=== PATIENT | male | born 2000 | race Caucasian/White ===

== ENCOUNTER 2020-07-24 16:00 | Emergency (ER) | payer OTHER, SELFPAY ==
[2020-07-24 16:13] VITALS: BP 136/91; PULSE 77; RESP 18; TEMP 36.3; O2SAT 98; BMI 30.5
--- NOTE | 2020-07-24 16:19 | XR_ITS ---
WS: [id number] Left hand, 3 views, 07/24/2020 Clinical Data: crush injury to hand Comparison: Left hand, 06/29/2016. Findings: There is a comminuted fracture of the proximal phalanx of the left second finger. There may be fat in the subcutaneous tissue adjacent to the fracture. There is soft tissue swelling about the left secon d finger. No other fractures are seen. The joint spaces are normal. XR/XR hand LT min 3V* [id number] Impression: Comminuted fracture of the second proximal phalanx of the left hand.
--- NOTE | 2020-07-24 16:20 | W.ED.EXTPRO ---
HPI - Extremity Problem General: Chief complaint: Extremity Injury, Upper Stated complaint: LEFT HAND INJURY Time Seen by Provider: 07/24/20 16:15 History of Present Illness: HPI Narrative: Patient is a 19-year-old male comes to the ED with left hand injury. Patient says he was at work and obtained a crush injury between heavy machinery equipment and a wall. Injury cause lacerations on second digit of left hand. He rates his pain currently an 8 out of 10. Most of his pain is located at second digit of left hand. Endorses limited range of motion of second digit due to pain. Patient had his last tetanus 2 years ago. Associated symptoms: Deny chest pain, fever(s) or rash Review of Systems Const: Denies: fever(s), chills or fatigue Eyes: Denies: change in vision or eye discomfort ENMT: Denies: throat pain, odynophagia, nasal discharge or nasal congestion Card: Denies: chest pain, palpitations, edema, swelling of feet/ankles, dyspnea on exertion or orthopnea Resp: Denies: dyspnea, productive cough or non-productive cough GI: Denies: abdominal pain, nausea, vomiting, diarrhea, constipation or hematochezia : Denies: flank pain, difficulty urinating, dysuria or hematuria Musc: Reports: extremity pain (Left hand); Denies: neck pain, back pain or extremity swelling Skin/Breast: Denies: rash or new lesions Neuro: Denies: headache(s), numbness in extremities or weakness in extremities Physical Exam Const: COMMON NORMALS: no acute distress, patient oriented x3 and alert GENERAL APPEARANCE: cooperative and comfortable HENMT: COMMON NORMALS: normocephalic HEAD & SCALP: normocephalic MOUTH: Normal oral and palatal mucosa present THROAT: posterior oropharynx normal and uvula midline Neck/C-Spine: COMMON NORMALS: supple GENERAL: Yes normal visual inspection Resp: COMMON NORMALS: normal respiratory effort, No retractions, No use of accessory muscles and clear to auscultation bilaterally AUSCULTATION: clear to auscultation bilaterally Cardio: COMMON NORMALS: regular rate, regular rhythm, S1 normal heart sound present, S2 normal heart sound present, No gallops present (Cardio), No clicks present (Cardio), No murmurs present (Cardio) and Peripheral pulses 2+ throughout RATE: regular rate RHYTHM: regular rhythm HEART SOUNDS: S1 normal heart sound present and S2 normal heart sound present PERIPHERAL PULSES: Peripheral pulses 2+ throughout GI: COMMON NORMALS: Normal to inspection, nondistended, normoactive bowel sounds present, Soft to palpation, non-tender and no masses PALPATION: Yes Soft to palpation : COMMON NORMALS: Yes no CVA tenderness BLADDER/KIDNEY EXAM: Yes no CVA tenderness Back/Pelvis: COMMON NORMALS: no CVA tenderness Extremity: NARRATIVE EXTREMITY EXAM: Left hand?no visible deformity seen. Swelling noted over the second digit MCP area. Patient also has 2 small superficial abrasions with minimal active bleeding. no second digit range of motion due to pain. Neurovascular intact. Neuro: COMMON NORMALS: patient oriented x3 and moves all extremities SENSORIUM/ORIENTATION: Yes alert Skin: NARRATIVE SKIN EXAM: 2 small superficial abrasions on second digit of left hand. Course Vital Signs: Vital signs: Vital Signs Temperature 97.3 F L 07/24/20 16:13 Pulse Rate 77 07/24/20 16:13 Respiratory Rate 18 07/24/20 17:26 Blood Pressure 136/91 07/24/20 16:13 Pulse Oximetry 98 07/24/20 16:13 MDM - Extremity (Nontraumatic) MDM Narrative: Medical decision making narrative: Patient is a 19-year-old male comes to the ED with crush injury to left hand. Patient particular has pain and swelling and limited range of motion second digit of left hand. 2 superficial abrasions noted. X-ray of left hand showed second digit comminuted proximal phalanx fracture. Patients left hand was irrigated and cleaned up and abrasions were bandaged. Patient was put in a splint and given a dose of hydrocodone while here in the ED and sent home with a written prescription for hydrocodone as well. I placed order with case management for patient to be referred to an orthopedic doctor at [facility]. Return to ED precautions given. I told patient to limit activity with left hand and to keep splint on and dry. Return to ED precautions given. Worker's Comp. paperwork was filled out and signed. I told patient that case management will be contacting him in the next several days set up an appoint with orthopedic doctor in [place]. patient understood and agreed with plan. Imaging Data^: Xray Ortho: Attestation: I personally reviewed and interpreted this imaging study as follows: My impression: Left hand x-ray?second digit comminuted proximal phalanx fracture. Discharge Plan Discharge Patient Disposition: Home Clinical Impression: Fracture of proximal phalanx of digit of left hand Qualifiers: Fracture type: open Qualified Code(s): S62.619B - Displaced fracture of proximal phalanx of unspecified finger, initial encounter for open fracture Condition: Stable Prescriptions: New cephalexin 500 mg capsule 500 mg PO Q6H 7 Days Qty: 28 RF: 0 No Action No Known Home Medications RF: 0 Discharge Orders: Discharge ED (Routine); Ordered 07/24/20 Ordered By: Leland Soriano Discharge Diet: Regular Discharge Activity: Limit activity as instructed Patient Instructions: Fractures - Phalanx (Finger), Opioid Safety Activity Restrictions/Additional Instructions: Follow-up with medical provider as directed. This management will be contacting the next several days to set up an appointment with orthopedic doctor at [facility] in [place]. Take medications as prescribed. Return to the ER or your medical provider if condition worsens. Please read and understand discharge instructions. If any questions, please ask. Stand Alone Forms: Work/School Release Coding Level of Care Code ED Spinner Frame for Josi Fwd Exam Comprehensive
[2020-07-24] MEDS: HYDROcodone-acetaminophen 7.5-325 mg Tablet 1 TAB PO (16:29)
[2020-07-24] MEDS: cephALEXin 500 mg Capsule PO (17:04)
[2020-07-24 17:26] VITALS: RESP 18
--- NOTE | 2020-07-25 08:34 | DCPLANNER ---
web content & social media manager had message to schedule a follow up appointment for patient with [facility]. web content & social media manager called clinic, got fax number and faxed patients information to the [facility] clinic. web content & social media manager will call clinic for appointment information. Clinic will call patient with appointment information.
--- NOTE | 2020-07-30 14:34 | DCPLANNER ---
Patient had a follow up appointment scheduled for 07.26.20 with Gabriella alanis - patient did attend appointment.
== END 2020-07-24 17:26 | disposition home or self-care (01) ==
PROVIDERS: Emergency Provider Physician Assistant
DX: S62.611A Displaced fracture of proximal phalanx of left index finger, initial encounter for closed fracture (principal); W23.0XXA Caught, crushed, jammed, or pinched between moving objects, initial encounter; Y99.0 Civilian activity done for income or pay
CPT/HCPCS: 73130; 99283

== ENCOUNTER 2020-11-10 07:25 | Emergency (ER) | payer OTHER, SELFPAY ==
[2020-11-10] VITALS (7 sets, daily range): BP systolic 113–148; BP diastolic 70–85; PULSE 68–82; RESP 15–18; TEMP 36.7; O2SAT 96–99; BMI 29.5
--- NOTE | 2020-11-10 07:30 | ED_ITS ---
HPI - Abdominal Pain General: Chief Complaint: Abdominal Pain Stated Complaint: ABD PAIN Time Seen by Provider: 11/10/20 07:27 Source: patient Mode of arrival: ambulatory Limitations: no limitations History of Present Illness: HPI narrative: Patient is a nice 20-year-old male who presents to ED today with a complaint of right upper abdominal pain that initially began yesterday [place] the river [place]. Patient states pain at that time was bearable but it has progressively worsened since onset. He was not drinking alcohol yesterday. He initially thought possibly his symptoms were related to dehydration. He does not complain of nausea or vomiting. He has not had any changes in bowel movements. He is not complaining of urinary symptoms or flank pain. He has no previous abdominal surgeries. No fever/chills. No injury or trauma to his abdomen. MD elicited complaint: abdominal pain Pertinent past history: none Onset (ago): day(s) (yesterday) Pain Consistency: constant Location: None and RUQ Severity: severe Radiation: none Migration to: no migration Relieving factors: nothing Associated Symptoms: Reports no associated symptoms; Denies change in bowel habits, change in stool character, chills, diarrhea, dysuria, fever(s), nausea and vomiting Review of Systems Const: Denies: fever(s), chills, body aches, fatigue or malaise ENMT: Denies: throat pain or odynophagia Card: Denies: chest pain Resp: Denies: dyspnea GI: Reports: abdominal pain; Denies: nausea, vomiting, diarrhea, change in bowel habits or change in stool character : Denies: flank pain, difficulty urinating, dysuria, urinary frequency, urinary urgency, genital pain or testicular pain Musc: Denies: neck pain, back pain, extremity pain or joint pain Skin/Breast: Denies: rash Neuro: Denies: headache(s), numbness in extremities, weakness in extremities, sensory changes or dizziness Physical Exam Const: COMMON NORMALS: no acute distress, average body habitus, patient oriented x3, no limitations, healthy appearing, alert and well nourished GENERAL APPEARANCE: cooperative ORIENTATION/CONSCIOUSNESS: Yes awake, Yes oriented to person, Yes oriented to place and Yes oriented to time HENMT: COMMON NORMALS: normocephalic and atraumatic HEAD & SCALP: normocephalic and atraumatic Resp: COMMON NORMALS: normal respiratory effort and clear to auscultation bilaterally AUSCULTATION: clear to auscultation bilaterally Cardio: COMMON NORMALS: regular rate and regular rhythm RATE: regular rate RHYTHM: regular rhythm GI: COMMON NORMALS: Normal to inspection, nondistended, normoactive bowel sounds present, No hepatosplenomegaly present and no masses INSPECTION: Yes normal to inspection AUSCULTATION: Yes normoactive bowel sounds PALPATION: Yes Tenderness to palpation present (GI) Details: RUQ (+ Galvan's) and Yes No hepatosplenomegaly present : COMMON NORMALS: Yes no CVA tenderness BLADDER/KIDNEY EXAM: Yes no CVA tenderness Back/Pelvis: COMMON NORMALS: no CVA tenderness Extremity: COMMON NORMALS: capillary refill normal, no clubbing, cyanosis or edema, no calf tenderness and no pedal edema Neuro: COMMON NORMALS: patient oriented x3 SENSORIUM/ORIENTATION: Yes alert, Yes oriented to person, Yes oriented to place and Yes oriented to time Skin: COMMON NORMALS: no rashes or lesions noted NARRATIVE SKIN EXAM: mild sunburn to bilateral LEs GENERAL SKIN EXAM: no rashes or lesions noted TRAUMA: no lacerations or abrasions Course Consultations: Consultation #1: Dr. Farias-will graciously consult on patient in the ED Vital Signs: Vital signs: Vital Signs Temperature 98.1 F 11/10/20 07:31 Pulse Rate 78 11/10/20 11:01 Respiratory Rate 16 11/10/20 11:01 Blood Pressure 148/75 11/10/20 11:01 Pulse Oximetry 98 11/10/20 11:01 MDM - Abdominal Pain MDM Narrative: Medical decision making narrative: Patient is a nice 20-year-old male who presents to ED today with a complaint of right upper quadrant pain initially beginning yesterday with symptoms progressing into today. He has no other complaints other than the discomfort. He has normal vital signs. Patient's labs are nonconcerning-he has a normal white count with normal LFTs and a normal lipase. Gallbladder US shows cholelithiasis with mild wall thickening. CT scan does show some nonspecific mild inflammatory changes in his RUQ which could be secondary to colitis, mesenteric adenitis, or epiploic appendagitis. Gallbladder was normal on CT evaluation. I spoke to general surgeon on-call Dr. Farias who is very pleasant and agrees to evaluate patient in the ED. Dr. Farias does not feel patient has an acute cholecystitis at this time. Recommends DC with pain meds/Augmentin and follow up with PCP. Return to ED precautions. Lab Data: Labs: Lab Results 11/10/20 11/10/20 11/10/20 Range/Units 07:47 07:47 08:55 WBC 10.0 (4.0-10.0) 10^3/ uL RBC 4.78 (4.1-5.3) 10^6/u L Hgb 14.1 (11.7-16.6) g/dL Hct 42.2 (42.0-52.0) % MCV 88.3 (80-94) fL MCH 29.5 (28.0-34.0) pg MCHC 33.4 (30.0-36.0) g/dL RDW 11.9 L (12.1-15.1) % Plt Count 191 (130-400) 10^3/c mm MPV 11.4 H (7.4-10.4) fL Neut % (Auto) 75.5 % Lymph % (Auto) 14.1 % Pickett % (Auto) 9.4 % Eos % (Auto) 0.7 % Baso % (Auto) 0.2 % Neut # (Auto) 7.52 (1.8-7.7) 10^3/u L Lymph # (Auto) 1.4 (0.8-4.8) 10^3/u L Pickett # (Auto) 0.9 (0.2-0.9) 10^3/u L Eos # (Auto) 0.1 (0.0-0.8) 10^3/u L Baso # (Auto) 0.0 (0.0-0.1) 10^3/u L Nucleated RBC % (a uto) 0 % Nucleated RBCs # 0.0 /100WBC Sodium 137 (136-145) mmol/L Potassium 4.5 (3.5-5.1) mmol/L Chloride 103 (98-107) mmol/L Carbon Dioxide 24 (22-29) mmol/L Anion Gap 14.5 (5-19) BUN 7 (6-20) mg/dL Creatinine 0.6 L (0.7-1.2) mg/dL GFR Calculation 170.1 H (90-130) mL/min Glucose 102 (65-115) mg/dL Calculated Osmolal ity 282 L (285-295) mOsm/k g Calcium 8.6 (8.5-10.5) mg/dL Total Bilirubin 0.6 (0.15-1.2) mg/dL AST 14 (0-40) U/L ALT 15 (0-41) U/L Alkaline Phosphata se 88 (40-130) IU/L Total Protein 7.1 (6.6-8.7) g/dL Albumin 4.3 (3.5-5.2) g/dL Globulin 2.8 (1.3-4.6) g/dL Lipase 36 (13-60) U/L Urine Color Yellow (Yellow) Urine Appearance Clear (CLEAR) Urine pH 7 (5-7) Ur Specific Gravit y 1.005 (1.005-1.030) Urine Protein Neg (Negative) Urine Glucose (UA) Norm (Normal) Urine Ketones Negative (Negative) Urine Blood Neg (Negative) Urine Nitrate Negative (Negative) Urine Bilirubin Neg (Negative) Urine Urobilinogen 4 H (Negative) mg/dL Ur Leukocyte Breonna ase Negative (Negative) Imaging Data ^: US gallbladder: Radiologist's impression: [employer] [address] Ultrasound Report Signed Patient: Milton Cisneros Unit #: [id number] : 2000 Age/Sex: 20 / M ADM Date: 11/10/20 Loc: ER Room/Bed: Attending Dr: Ordering Provider/Ordering MD: Skylar Dia Date of Service: 11/10/20 Procedure(s): US gall bladder [id number] Accession Number(s): [id number] Report Number: [id number] PROCEDURE INFORMATION: Exam: US Abdomen, Limited; Right Upper Quadrant Exam date and time: 11/10/2020 7:35 AM Age: 20 years old Clinical indication: Abdominal pain; Additional info: Ruq pain TECHNIQUE: Imaging protocol: US abdomen. Real time ultrasound with image documentation. Limited exam focused on the right upper quadrant. COMPARISON: No relevant prior studies available. FINDINGS: Liver: Normal. No masses. Gallbladder: There are mobile stones in the gallbladder. There is mild wall thickening. Reported tenderness while scanning was noted in the right upper quadrant. No pericholecystic fluid. Common bile duct: Common bile duct is measures up to 5 mm. No stones. Pancreas: Visualized pancreas is unremarkable. Right kidney: No mass. No hydronephrosis. US/US gall bladder [id number] IMPRESSION: Cholelithiasis with mild wall thickening. Findings may be seen with acute cholecystitis in the appropriate clinical context. Correlation with HIDA scan may be helpful. Dictated By: Ansley Dyson MD Signed By: Ansley Dyson MD Signed Date/Time: 11/10/20857 DD/ 5 CT Abd/Pel: Radiologist's impression: [address] [address] [address] Scan Report Signed Patient: Milton Cisneros Unit #: [id number] : 2000 Age/Sex: 20 / M ADM Date: 11/10/20 Loc: ER Room/Bed: Attending Dr: Ordering Provider/Ordering MD: Skylar Dia Date of Service: 11/10/20 Procedure(s): CT abdomen pelvis w con* [id number] Accession Number(s): [id number] Report Number: [id number] PROCEDURE INFORMATION: Exam: CT Abdomen And Pelvis With Contrast Exam date and time: 11/10/2020 8:35 AM Age: 20 years old Clinical indication: Abdominal pain; Localized; Right; Additional info: Ruq abdominal pain TECHNIQUE: Imaging protocol: Computed tomography of the abdomen and pelvis with contrast. Radiation optimization: All CT scans at this facility use at least one of these dose optimization techniques: automated exposure control; mA and/or kV adjustment per patient size (includes targeted exams where dose is matched to clinical indication); or iterative reconstruction. Contrast material: OMNIPAQUE 300; Contrast volume: 95 ml; Contrast route: INTRAVENOUS (IV); COMPARISON: US gall bladder [id number] 11/10/2020 7:51 AM RADIATION DOSE METRICS: Total DLP (mGy-cm): 1872.8 FINDINGS: Lungs: Bilateral dependent atelectasis noted. Liver: Normal. No mass. Gallbladder and bile ducts: Normal. No calcified stones. No ductal dilation. Pancreas: Normal. No ductal dilation. Spleen: Normal. No splenomegaly. Adrenal glands: Normal. No mass. Kidneys and ureters: Normal. No hydronephrosis. Stomach and bowel: There is slight haziness of the fat anterior to the proximal transverse colon in the right upper quadrant. There is no clear evidence of bowel inflammation. There is a mildly prominent reactive lymph nodes anterior to the right psoas muscle, the largest measuring 0.7 cm in transverse dimension. Appendix: No evidence of appendicitis. Intraperitoneal space: Trace amount of free fluid noted in the pelvis. Vasculature: Unremarkable. No abdominal aortic aneurysm. Lymph nodes: See Stomach and bowel finding. Urinary bladder: Unremarkable as visualized. Reproductive: Unremarkable as visualized. Bones/joints: Unremarkable. No acute fracture. Soft tissues: Unremarkable. CT/CT abdomen pelvis w con* [id number] IMPRESSION: Nonspecific mild inflammatory changes in the right upper quadrant, which may be secondary to colitis involving the proximal transverse colon, mesenteric adenitis or epiploic appendagitis. Radiation Dose CTDIVOL = (mGy): DLP = 1872.8 (mGy-cm) Dictated By: Rinku Houston Signed By: Rinku Houston Signed Date/Time: 11/10/20 1007 DD/ 1005 Discharge Plan Discharge Patient Disposition: Home Clinical Impression: Abdominal pain, RUQ Condition: Stable Prescriptions: New hydrocodone-acetaminophen 5-325 mg tablet 1 tab PO Q6H PRN (Reason: pain) Qty: 14 RF: 0 amoxicillin-pot clavulanate [Augmentin] 875-125 mg tablet 1 tab PO Q12H 7 Days Qty: 14 RF: 0 Discharge Orders: Discharge ED (Routine); Ordered 11/10/20 Ordered By: Skylar Dia Patient Instructions: Abdominal Pain (ED), Opioid Safety Activity Restrictions/Additional Instructions: As we discussed the general surgeon Dr. Farias does not feel like your gallbladder is acutely infected at this time. Your pain most likely is related to some inflammation of your colon or possibly some mesenteric lymph node swelling. Your labs and vitals are all normal at this time. Please follow-up with your primary care provider in 3 to 5 days for re-evaluation. You need to return to the emergency department immediately for severe or worsening pain, episodes of vomiting or diarrhea, fevers, or any other concerns you may have. Coding Level of Care Code ED Special Investigation Unit Investigator for Chg Fwd Exam Comprehensive
--- NOTE | 2020-11-10 07:35 | USR_ITS ---
PROCEDURE INFORMATION: Exam: US Abdomen, Limited; Right Upper Quadrant Exam date and time: 11/10/2020 7:35 AM Age: 20 years old Clinical indication: Abdominal pain; Additional info: Ruq pain TECHNIQUE: Imaging protocol: US abdomen. Real time ultrasound with image documentation. Limited exam focused on the right upper quadrant. COMPARISON: No relevant prior studies available. FINDINGS: Liver: Normal. No masses. Gallbladder: There are mobile stones in the gallbladder. There is mild wall thickening. Reported tenderness while scanning was noted in the right upper quadrant. No pericholecystic fluid. Common bile duct: Common bile duct is measures up to 5 mm. No stones. Pancreas: Visualized pancreas is unremarkable. Right kidney: No mass. No hydronephrosis. US/US gall bladder [id number] IMPRESSION: Cholelithiasis with mild wall thickening. Findings may be seen with acute cholecystitis in the appropriate clinical context. Correlation with HIDA scan may be helpful.
[2020-11-10] MEDS: ondansetron 2 mg/ML SDV 2 mL 4 MG IVP (07:52)
[2020-11-10] MEDS: sodium chloride 0.9% 1,000 ML 999 ML IV (07:52)
[2020-11-10] MEDS: morphine 4 mg/mL SDV 1 mL IVP (07:52)
[2020-11-10 08:02] LABS: Basophils % 0.2 %; Eosinophils # 0.1 10^3/uL (0.0-0.8); Eosinophils % 0.7 %; Hematocrit 42.2 % (42.0-52.0); Hemoglobin 14.1 g/dL (11.7-16.6); Lymphocytes # 1.4 10^3/uL (0.8-4.8); Lymphocytes % 14.1 %; Mean Corpuscular HGB Conc 33.4 g/dL (30.0-36.0); Mean Corpuscular Hemoglobin 29.5 pg (28.0-34.0); Mean Corpuscular Volume 88.3 fL (80-94); Mean Platelet Volume 11.4 fL (7.4-10.4); Monocytes # 0.9 10^3/uL (0.2-0.9); Monocytes % 9.4 %; Neutrophils # 7.52 10^3/uL (1.8-7.7); Neutrophils % 75.5 %; Nucleated Red Blood Cells % 0 %; Platelet Count 191 10^3/cmm (130-400); Red Blood Count 4.78 10^6/uL (4.1-5.3); Red Cell Distribution Width 11.9 % (12.1-15.1)
[2020-11-10 08:32] LABS: Alanine Aminotransferase 15 U/L (0-41); Albumin Level 4.3 g/dL (3.5-5.2); Alkaline Phosphatase 88 IU/L (40-130); Anion Gap 14.5 (5-19); Aspartate Amino Transferase 14 U/L (0-40); Blood Urea Nitrogen 7 mg/dL (6-20); Calcium 8.6 mg/dL (8.5-10.5); Carbon Dioxide 24 mmol/L (22-29); Chloride 103 mmol/L (98-107); Globulin 2.8 g/dL (1.3-4.6); Glomerular Filtration Rate 170.1 mL/min (90-130); Glucose 102 mg/dL (65-115); Lipase 36 U/L (13-60); Osmolality Calculated 282 mOsm/kg (285-295); Potassium 4.5 mmol/L (3.5-5.1); Sodium 137 mmol/L (136-145); Total Bilirubin 0.6 mg/dL (0.15-1.2); Total Protein 7.1 g/dL (6.6-8.7)
--- NOTE | 2020-11-10 08:35 | CTR_ITS ---
PROCEDURE INFORMATION: Exam: CT Abdomen And Pelvis With Contrast Exam date and time: 11/10/2020 8:35 AM Age: 20 years old Clinical indication: Abdominal pain; Localized; Right; Additional info: Ruq abdominal pain TECHNIQUE: Imaging protocol: Computed tomography of the abdomen and pelvis with contrast. Radiation optimization: All CT scans at this facility use at least one of these dose optimization techniques: automated exposure control; mA and/or kV adjustment per patient size (includes targeted exams where dose is matched to clinical indication); or iterative reconstruction. Contrast material: OMNIPAQUE 300; Contrast volume: 95 ml; Contrast route: INTRAVENOUS (IV); COMPARISON: US gall bladder [id number] 11/10/2020 7:51 AM RADIATION DOSE METRICS: Total DLP (mGy-cm): 1872.8 FINDINGS: Lungs: Bilateral dependent atelectasis noted. Liver: Normal. No mass. Gallbladder and bile ducts: Normal. No calcified stones. No ductal dilation. Pancreas: Normal. No ductal dilation. Spleen: Normal. No splenomegaly. Adrenal glands: Normal. No mass. Kidneys and ureters: Normal. No hydronephrosis. Stomach and bowel: There is slight haziness of the fat anterior to the proximal transverse colon in the right upper quadrant. There is no clear evidence of bowel inflammation. There is a mildly prominent reactive lymph nodes anterior to the right psoas muscle, the largest measuring 0.7 cm in transverse dimension. Appendix: No evidence of appendicitis. Intraperitoneal space: Trace amount of free fluid noted in the pelvis. Vasculature: Unremarkable. No abdominal aortic aneurysm. Lymph nodes: See Stomach and bowel finding. Urinary bladder: Unremarkable as visualized. Reproductive: Unremarkable as visualized. Bones/joints: Unremarkable. No acute fracture. Soft tissues: Unremarkable. CT/CT abdomen pelvis w con* [id number] IMPRESSION: Nonspecific mild inflammatory changes in the right upper quadrant, which may be secondary to colitis involving the proximal transverse colon, mesenteric adenitis or epiploic appendagitis. Radiation Dose CTDIVOL = (mGy): DLP = 1872.8 (mGy-cm)
[2020-11-10] MEDS: iohexol 300 mg/mL 100 mL Btl IV (09:33)
[2020-11-10 09:35] LABS: Add Urine Microscopic? NO; Charge for UA Resulting for Rev
[2020-11-10 10:16] LABS: Bilirubin Urine Neg (Negative); Blood Urine Neg (Negative); Glucose Urine UA Norm (Normal); Ketones Urine Negative (Negative); Leukocyte Esterase Urine Negative (Negative); Nitrate Urine Negative (Negative); Protein Urine Neg (Negative); Specific Gravity, Urine 1.005 (1.005-1.030); Urine Appearance Clear (CLEAR); Urine Color Yellow (Yellow); Urobilinogen Urine 4 mg/dL (Negative); pH Urine 7 (5-7)
--- NOTE | 2020-11-10 11:43 | P.CONIM_ITS ---
Providers/Reason For Consult Consulting Physician/Specialty*: ER Reason for Consult*: Abdominal pain History of Present Illness History of Present Illness Milton Cisneros is a 20 year old male who presented to the hospital with 1 day history of worsening abdominal pain. He reports that he has been doing some heavy lifting and bushwacking the last couple of days. The pain is sharp and constant, located in his right upper quadrant. Palpation and movement make the pain worse. Nothing seems to make it better. He denies any nausea vomiting, fever, chills, diarrhea, constipation. He denies any sick contacts or history of recent travel. He is never had this type of pain before. Review of Systems General: Reports: 10 or more systems reviewed and unremarkable except in HPI and below Meds/Allergies Home Medications and Allergies Home Medications Medication Instructions Recorded Confirmed Last Taken Type amoxicillin-pot clavulanate 1 tab PO Q12H 7 Days #14 tab 11/10/20 Unknown Rx [Augmentin] hydrocodone-acetaminophen 1 tab PO Q6H PRN #14 tab 11/10/20 Unknown Rx Allergies Allergy/AdvReac Type Severity Reaction Status Date / Time No Known Allergies Allergy Verified 07/24/20 16:39 Vitals/I&O/Wt Last Vital Signs Temp 98.1 F 11/10/20 07:31 Pulse 78 11/10/20 11:01 Resp 16 11/10/20 11:01 BP 148/75 11/10/20 11:01 Pulse Ox 98 11/10/20 11:01 Weight last 48 hrs Weight 218 lb Physical Exam Const: COMMON NORMALS: no acute distress, patient oriented x3, no limitations and healthy appearing HENMT: COMMON NORMALS: normocephalic and atraumatic HEAD & SCALP: normocephalic and atraumatic Eye: COMMON NORMALS: Equal, round and reactive pupils present and EOMs intact bilaterally PUPIL: Yes Equal, round and reactive pupils present Neck/C-Spine: COMMON NORMALS: no JVD Chest: COMMONS NORMALS: normal inspection of the chest and normal palpation of entire chest wall Resp: COMMON NORMALS: normal respiratory effort, No retractions, No use of accessory muscles and clear to auscultation bilaterally AUSCULTATION: clear to auscultation bilaterally Cardio: COMMON NORMALS: no JVD, regular rate and regular rhythm RATE: regul ar rate RHYTHM: regular rhythm GI: OTHER: Mild tenderness palpation in the right upper quadrant without gua rding or rebound. Negative Galvan sign Extremity: COMMON NORMALS: normal to inspection and full ROM Neuro: COMMON NORMALS: patient oriented x3, CN's II-XII intact bilaterally, moves all extremities and no focal motor deficits Psych: COMMON NORMALS: mental status grossly normal, Normal thought process present, cooperative and speech normal SPEECH: Yes normal speech THOUGHT PROCESS: Normal thought process present A&P Assessment and plan (1) Abdominal pain, RUQ: Patient does not have cholecystitis, however he does have asymptomatic cholelithiasis. CT shows mild transverse colitis in the right upper quadrant with also some mesenteric adenitis and possibly epiploic appendagitis. There appears to be some very mild gallbladder wall thickening secondary to this. I spoke to the ER doctor and asked her to please discharge the patient home with a little bit of pain medicine in a week's worth of Augmentin. I informed patient that if his symptoms get worse please come back to the hospital. He should follow up in 1 to 2 weeks with his primary care physician Thank you for this consultation Status: Acute Coding Level of Care Code Acute Mva Operator for Josi Elizabeth Diagnoses Abdominal pain, RUQ R10.11
== END 2020-11-10 11:51 | disposition home or self-care (01) ==
PROVIDERS: Emergency Provider Physician Assistant
DX: R10.11 Right upper quadrant pain (principal)
CPT/HCPCS: 74177; 76705; 80053; 81003; 83690; 85025; 96361; 96374; 96375; 99284; J2270; J2405; J7030; Q9967